=== PATIENT | male | born 1940 | race Caucasian/White ===

== ENCOUNTER 2021-04-12 10:33 | Emergency (ER) | payer MEDICARE, OTHER, SELFPAY ==
[2021-04-12] VITALS (7 sets, daily range): BP systolic 120–129; BP diastolic 72–76; PULSE 65–77; RESP 16–19; TEMP 35.6; O2SAT 92–98; BMI 23.6
--- NOTE | 2021-04-12 10:49 | EKG12_ITS ---
Test Reason : SOB Blood Pressure : / mmHG Vent. Rate : 074 BPM Atrial Rate : 074 BPM P-R Int : 188 ms QRS Dur : 122 ms QT Int : 398 ms P-R-T Axes : 037 -47 236 degrees QTc Int : 441 ms Normal sinus rhythm Left axis deviation Left ventricular hypertrophy with QRS widening and repolarization abnormality Inferior infarct , age undetermined Abnormal ECG Confirmed by ELYSE JAY, EDWIN ([id number]), proposal editor KEYANA OLIVAS ([id number]) on 04/14/2021 7:54:15 AM Referred By: JAZMIN Confirmed By:EDWIN PAPPAS MD
--- NOTE | 2021-04-12 10:50 | EDS_ITS ---
HPI History of Present Illness Chief Complaint: Shortness of Breath Detail of Chief Complaint: Shortness of breath Informant: patient Narrative Narrative: Patient presents to the emergency department from home with his daughter for complaint of fatigue and shortness of breath. Patient has had Covid symptoms since March 29 and tested positive for Covid on April 02. Patient received monoclonal antibody infusion on April 06. Patient's cough has improved and he denies any chest pain. Daughter is concerned because at times she will have labored breathing and his O2 sats at home have been down to 88% on room air. Patient also with history of coronary artery disease with prior 5 vessel CABG in 1995 and 2 cardiac stents placed in 2008. Patient not currently on any medications. He denies any chest pain. He denies fevers. He denies blood in stool or black tarry stool. PFSH PFSH Allergy/AdvReac Type Severity Reaction Status Date / Time No Known Allergies Allergy Verified 04/12/21 10:34 Surgical History (Updated 04/12/21 @ 10:52 by Carmelina Alanis) H/O five vessel coronary artery bypass Social History Smoking Status: Unknown if ever smoked ROS ROS ED Constitutional Constitutional ED: Reports systems reviewed and no addt'l complaints, except as documented; Denies body ache(s), change in weight or chills Eyes Eyes: Denies acute decrease in peripheral vision, change in vision, double vision or loss of vision ENT ENT ED: Reports none; Denies ear pain, lip swelling, loss taste/smell, neck pain , otalgia or sore throat Cardiovascular Cardiovascular: Reports none; Denies abdominal pain, chest pain with activity, leg edema, lightheadedness, palpitations, rapid heart rate or syncope Respiratory/Chest Respiratory/Chest: Reports none and dyspnea; Denies change in mental status, dry cough, hemoptysis, shortness of breath at rest or shortness of breath with exertion Gastrointestinal Gastrointestinal: Reports none; Denies abdominal pain, change in stool character, diarrhea, hematemesis, hematochezia, melena, rectal bleeding or vomiting Genitourinary Genitourinary ED: Reports none; Denies abdominal discomfort, anuria, dysuria, genital pain or polyuria Musculoskeletal Musculoskeletal: Reports none; Denies arthralgias, back pain, difficulty walking, extremity pain, muscle weakness or myalgias Integumentary Reports none; Denies abscess or rash Neurologic Neurologic: Reports none and weakness; Denies abnormal gait, confusion, focal we akness, frequent falls, headache(s), loss of vision, numbness, paresthesias, radicular pain or vertigo Psychiatric Psychiatric: Reports systems reviewed and no addt'l complaints, except as documented and none; Denies behavioral changes, confusion, difficulty concentrating, hallucinations, suicidal ideation, tactile hallucinations or visual hallucinations Endocrine Endocrinology: Denies none, cold intolerance, excessive sweating, fatigue or heat intolerance Hematologic/Lymphatic Hematologic/Lymphatic: Reports none; Denies anemia, easy bleeding or easy bruising Allergic/Immunologic Allergic/Immunologic ED: Denies as per HPI, none, lip swelling, mouth swelling, throat swelling, tongue swelling or hives EXAM Physical Exam Const Vital Signs: 04/12/21 10:35 04/12/21 10:36 04/12/21 10:50 Temperature 96.1 F L 96.1 F L Temperature Source Temporal Temporal Pulse Rate 77 77 Respiratory Rate 18 18 Respiratory Effort Short of Breath Labored Blood Pressure 129/72 H 129/72 H Blood Pressure Mean 91 91 Pulse Ox 94 94 Oxygen Delivery Method Room Air Room Air Room Air 04/12/21 12:42 Temperature Temperature Source Pulse Rate 65 Respiratory Rate 17 Respiratory Effort Blood Pressure 120/76 Blood Pressure Mean 90 Pulse Ox 92 Oxygen Delivery Method Room Air Positive well nourished and well developed General Appearance ED: well developed and NAD HEENT Reports TM's clear and moist mucous membranes normocephalic and atraumatic; Negative for trauma or tenderness Tympanic Membrane ED: Yes TM's clear Eyes PERRL and EOMs intact bilaterally General Eye ED: Negative for pale conjunctiva or scleral icterus Neck no lymphadenopathy, supple and no JVD General: Negative for tenderness Chest Wall inspection of chest normal and palpation of chest normal Chest: Negative for tenderness Resp normal respiratory effort and clear to auscultation bilaterally Effort and Inspection: Negative for respiratory distress or pain with movement Auscultation: Negative for rhonchi, wheezes or diminished lung sounds Cardio regular rate, regular rhythm, S1 normal heart sound, S2 normal heart sound and no murmurs Peripheral Pulses: pulses 2+ throughout GI normal to inspection, nondistended, normoactive bowel sounds, soft to palpation, non-tender, non-distended and no masses Back/Spine no CVA tenderness and no thoracic nor lumbar tenderness Extremity normal to inspection General Extremety ED: Negative for edema General Extremity: Negative for edema Neuro oriented x3, CN's II-XII intact bilaterally, no sensory deficits noted and gait normal Sensorium / Orientation: awake, alert, oriented to person, oriented to place and oriented to time Motor Exam: strength 5/5 throughout and strength abnormal Psych mental status grossly normal Skin no rashes or lesions noted and no wounds MDM MDM MDM Narrative Medical decision making narrative: IV line established on arrival. Patient placed on a registered nurse cardiac. Patient was ambulated in the department and his O2 sat did not drop below 90%. At this point I discussed results with patient as well as his family members and they are comfortable taking him home. Lab Data Attestation: I reviewed the patient's lab results. Labs: Laboratory Results - last 24 hr 04/12/21 04/12/21 04/12/21 11:35 11:35 11:35 WBC 6.0 RBC 4.48 L Hgb 13.7 Hct 38.8 L MCV 86.6 MCH 30.6 MCHC 35.3 RDW Std Deviation 41.8 RDW Coeff of Gisela 13.2 Plt Count 274 MPV 9.1 Immature Gran % (Auto) 0.800 Neut % (Auto) 84.0 H Lymph % (Auto) 8.0 L [place] % (Auto) 6.5 Eos % (Auto) 0.5 Baso % (Auto) 0.2 Absolute Neuts (auto) 5.1 Absolute Lymphs (auto) 0.48 L Nucleated RBC % 0 Differential Comment SCANNED D-Dimer Quant (PE/DVT) 1.30 H* Sodium 134 L Potassium 3.3 L Chloride 96 L Carbon Dioxide 27.0 Anion Gap 11 BUN 17 Creatinine 0.88 Estim Creat Clear Calc 70.28 Est GFR (MDRD) Af Amer 108 Est GFR (MDRD) Non-Af 89 BUN/Creatinine Ratio 19.4 Glucose 162 H Calcium 9.2 Troponin I High Sens 6 Urine Color Urine Clarity Urine pH Ur Specific [place] Urine Protein Urine Glucose (UA) Urine Ketones Urine Occult Blood Urine Nitrite Urine Bilirubin Urine Urobilinogen Ur Leukocyte Esterase Urine RBC Urine WBC Ur Squamous Epith Cells Urine Bacteria Urine Mucus 04/12/21 12:35 WBC RBC Hgb Hct MCV MCH MCHC RDW Std Deviation RDW Coeff of Gisela Plt Count MPV Immature Gran % (Auto) Neut % (Auto) Lymph % (Auto) [place] % (Auto) Eos % (Auto) Baso % (Auto) Absolute Neuts (auto) Absolute Lymphs (auto) Nucleated RBC % Differential Comment D-Dimer Quant (PE/DVT) Sodium Potassium Chloride Carbon Dioxide Anion Gap BUN Creatinine Estim Creat Clear Calc Est GFR (MDRD) Af Amer Est GFR (MDRD) Non-Af BUN/Creatinine Ratio Glucose Calcium Troponin I High Sens Urine Color Yellow Urine Clarity Sl. Cloudy Urine pH 7.0 Ur Specific [place] 1.005 Urine Protein 15 H Urine Glucose (UA) Normal Urine Ketones 5 H Urine Occult Blood 25 H Urine Nitrite Negative Urine Bilirubin Negative Urine Urobilinogen Normal Ur Leukocyte Esterase Negative Urine RBC 0-5 SEEN Urine WBC 0 SEEN Ur Squamous Epith Cells 0 SEEN Urine Bacteria 0 SEEN Urine Mucus 0 SEEN Radiography Diagnostic Testing: Clinical Impression(s) from Imaging Studies Chest X-Ray 04/12/21 11:53 IMPRESSION: Bilateral pulmonary infiltrates in the preferential peripheral distribution worse in the left hemithorax. This is suggestive of Covid pneumonitis. Electronically Signed: Sandro Lozano MD at 12:28 EST , Service support , Chest CTA 04/12/21 12:10 IMPRESSION: There is no evidence of pulmonary embolism. Bilateral pulmonary infiltrates in the preferential peripheral distribution suggestive of pneumonitis associated with Covid. Electronically Signed: Sandro Lozano MD at 13:04 EST , Service support , 1 view chest x-ray obtained interpreted by myself as bilateral infiltrates especially in the periphery. Radiology in agreement. EKG Initial EKG: Attestation: I personally reviewed and interpreted this EKG as follows: Comments: Sinus rhythm with a ventricular rate of 74 bpm with LVH and old inferior infarct noted. Prior EKG tracings: not available for review Discharge Plan Triage Chief Complaint: Shortness of Breath ED Provider: Caleb Rose Dx/Rx/DC Orders Clinical Impression: COVID-19, Acute dyspnea Instructions: Shortness of Breath Coping, Caring for Someone Who Has COVID-19 Primary Care Provider: Domenico Krishnamurthy Referrals: Domenico Krishnamurthy MD [Primary Care Provider] - 3-5 Days Disposition Disposition: Home, Self Care
--- NOTE | 2021-04-12 10:57 | NURSING ---
NO OLD EKGS
[2021-04-12] MEDS: 0.9% Normal Saline 1,000 ML 150 ML IV (11:32)
[2021-04-12 11:44] LABS: Absolute Lymphocyte Count 0.48 X10^3/uL (0.83-4.51); Absolute Neutrophil Count 5.1 X10^3/uL (2.0-7.7); Basophil# 0.01 X10^3/uL; Basophil% 0.2 % (0-1); Eosinophil# 0.03 X10^3/uL; Eosinophils% 0.5 % (0-5); Hematocrit 38.8 % (40-54); Hemoglobin 13.7 g/dL (13.0-16.5); Lymphocyte # 0.48 X10^3/ul (0.83-4.51); Mean Corp Hgb Conc 35.3 g/dL (32-36); Mean Corpuscular Hgb 30.6 pg (27.0-32.0); Mean Corpuscular Volume 86.6 fL (80-94); Mean Platelet Vol. 9.1 fl (6.2-12.0); Monocyte# 0.39 X10^3/uL; Monocyte% 6.5 % (0-10); NRBC Flagged by Analyzer 0 % (0-5); Neutrophil # 5.06 X10^3/uL (2.7-7.7); POSITIVE DIFFERENTIAL YES; Platelet Count 274 K/mm3 (150-450); RBC Distribution Width CV 13.2 % (11.6-14.6); RBC Distribution Width SD 41.8 fl (35.1-43.9); Red Blood Count 4.48 M/mm3 (4.6-6.2)
--- NOTE | 2021-04-12 11:53 | RAD_ITS ---
STUDY: X-RAY CHEST REASON FOR EXAM: Male, 80 years old. Dyspnea TECHNIQUE: Single AP portable view of the chest. COMPARISON: None. FINDINGS: EKG electrodes are seen. There are bilateral patchy pulmonary infiltrates in the preferential lateral peripheral distribution suggestive of a pneumonitis associated with Covid.This is worse in the left hemithorax. There is no demonstrated pleural abnormality. Sternal cerclage wires and vascular clips are present from a prior sternotomy and coronary artery bypass graft procedure (CABG). Normal mediastinum and vicente. Normal visualized pulmonary arteries. There is atherosclerotic calcification of the aortic arch with tortuosity. Normal visualized thoracic spine. Normal visualized ribs, clavicles, and shoulders. There is no demonstrated abnormality of the visualized soft tissue structures of the upper abdomen. RAD/Chest 1 View (Portable) IMPRESSION: Bilateral pulmonary infiltrates in the preferential peripheral distribution worse in the left hemithorax. This is suggestive of Covid pneumonitis. Electronically Signed: Sandro Lozano MD at 12:28 EST , Service support ,
[2021-04-12 11:54] LABS: Differential Indicated SCAN CRITERIA MET
[2021-04-12 12:02] LABS: Anion Gap 11 (5-15); BUN 17 mg/dL (7-18); BUN/Creat Ratio 19.4 RATIO (10-20); Calcium,Total 9.2 mg/dL (8.5-10.1); Chloride 96 mmol/L (98-107); Creatinine, Serum 0.88 mg/dL (0.70-1.30); EST Glomerular Filtration Rate 89 mL/min (>60); Est Glom Filt Rate - Afr Amer 108 mL/min (>60); Estimated Creatinine Clearance 70.28 ml/min; Glucose 162 mg/dL (74-106); Potassium 3.3 mmol/L (3.5-5.1); Sodium Level 134 mmol/L (136-145); Troponin-I HS 6 pg/mL (3.0-78.0)
--- NOTE | 2021-04-12 12:10 | CT_ITS ---
STUDY: CTA CHEST REASON FOR EXAM: Male, 80 years old. Dyspnea, elevated d-dimer RADIATION DOSAGE (If Supplied By Facility): CTDIvol = ( 14.72 ) mGy, DLP = ( 416.98 ) mGycm TECHNIQUE: The examination was performed with the intravenous administration of IV 100mL Isovue-300. Post-processing of the angiographic images was performed, with multiplanar reformation and 3D reconstruction. Individualized dose optimization techniques were used for this CT. COMPARISON: Comparison is made with prior chest radiograph done earlier in the day. FINDINGS: Normal enhancement of the main pulmonary artery and right and left pulmonary arteries. Normal enhancement of the bilateral peripheral pulmonary arteries. There is no demonstrated pulmonary embolism. Normal thoracic aorta and visualized great vessels. There is no demonstrated aortic dissection. There are calcifications of the coronary arteries. Normal mediastinum. Normal hilar regions. Normal visualized trachea and bronchi. The lungs are well expanded. Diffuse bilateral pulmonary infiltrates in the preferential peripheral distribution involving both upper and lower lobes. This is worse on the left side. Normal pleura. Normal chest wall structures. There are degenerative changes of thoracic spine. There is a 8.2 mm cyst in the upper medial aspect of the dome of the right lobe of the liver. CT/CTA Chest W/WO Contrast IMPRESSION: There is no evidence of pulmonary embolism. Bilateral pulmonary infiltrates in the preferential peripheral distribution suggestive of pneumonitis associated with Covid. Electronically Signed: Sandro Lozano MD at 13:04 EST , Service support ,
[2021-04-12 12:48] LABS: Bacteria 0 SEEN /hpf (None Seen); Mucous, Urine 0 SEEN /hpf (<or=2+); Squamous Epithelial Cells - UA 0 SEEN /hpf (0-5); White Blood Cells 0 SEEN /hpf (0-5)
[2021-04-12 12:52] LABS: Color, Urine Yellow (Yellow); Glucose, Dipstick Normal (Normal); Ketone-Dipstick 5 mg/dl (Negative); Leukocyte Esterase-Dipstick Negative /ul (Negative); Nitrite-Dipstick Negative (Negative); Occult Blood-Urine 25 /ul (Negative); Protein-Dipstick 15 mg/dl (Negative); Specific Gravity, Urine 1.005 (1.002-1.030); Urine Bilirubin Dipstick Negative (Negative); Urine Clarity Sl. Cloudy (Clear); Urine Urobilinogen Normal (Normal)
[2021-04-12 12:58] LABS: Red Blood Cells-Urine 0-5 SEEN /hpf (0-5)
[2021-04-12 13:05] LABS: Differential Comment SCANNED
== END 2021-04-12 14:47 | disposition home or self-care (01) ==
PROVIDERS: Emergency Provider Emergency Medicine; PCP Internal Medicine
DX: U07.1 COVID-19 (principal); I25.10 Atherosclerotic heart disease of native coronary artery without angina pectoris; R53.1 Weakness; Z95.1 Presence of aortocoronary bypass graft; Z95.5 Presence of coronary angioplasty implant and graft
CPT/HCPCS: 71045; 71275; 80048; 81001; 84484; 85025; 85379; 87086; 87088; 93005; 96360; 96361; 99285; J7030; Q9967; A4216

== ENCOUNTER 2023-12-18 14:10 | Emergency (ER) | payer MEDICARE, OTHER, SELFPAY ==
[2023-12-18 14:11] VITALS: BP 134/87; PULSE 62; RESP 18; TEMP 36.5; O2SAT 95; BMI 23.6
--- NOTE | 2023-12-18 14:29 | EX.ED.DYSGE1 ---
HPI History of Present Illness Chief Complaint: Rash Narrative Narrative: Patient. Is a 83-year-old male with no known significant past medical history not on any daily medications who presents to the emergency department with chief complaint of rash. He states that he has been dealing with lesions for approximately a year on and off. He states that for the past month he has noted that he has had this rash spread across his body. According to the patient and family member at bedside they note that the rash started on the long his right side of his abdomen progressively healed went away and then had been popping up periodically on the random areas of his body. At first they thought this was poison deneen and tried steroids and other [id number] medications for poison deneen that were not helping him. He states that the first round of steroids did help his rash and went away however after discontinuation of the steroids the rash returned. He states that any topicals that he attempts to put on it makes it more itchy and worse. He states that yesterday he went back to urgent care they placed him on a another steroid taper and gave him a intramuscular injection of 125 mg Solu-Medrol. Patient states that he does have a dermatology appointment coming up in January. Patient states that the most recent lesions. On the left foot. PFSH PFSH Home Medications ?Medication ?Instructions ?Recorded ?Last Taken ?Type NK 12/18/23 Unknown History valacyclovir 1 gram tablet 1,000 mg PO Q12H 10 days #20 tabs 12/18/23 Unknown Rx Allergy/AdvReac Type Severity Reaction Status Date / Time No Known Allergies Allergy Verified 12/18/23 14:12 Surgical History H/O five vessel coronary artery bypass Social History Smoking Status: Unknown if ever smoked ROS ROS ED ROS Narrative Constitutional: Patient denies any headaches, lightheadedness, dizziness, fevers, chills Eyes: Denies change in vision double vision blurry vision Cardiovascular: Denies chest pain palpitations Respiratory: Denies shortness of breath Abdomen: Denies abdominal pain nausea vomit diarrhea : Denies any urinary symptoms Neurological: Denies any numbness, weakness, tingling Musculoskeletal: Denies back pain Skin: Complains of rash as noted above EXAM Physical Exam Narrative Exam Narrative: General: Patient sitting at bedside rest comfortably did not appear to be acute distress Head: Atraumatic, normocephalic Eyes: PERRL bilaterally, EOMI bilateral, no conjunctival injection noted, Nose, throat: No intraoral lesions identified on exam, uvula midline no posterior pharynx erythema Neck: Soft, supple, trachea midline Cardiovascular: Regular rate and rhythm no murmurs gallops rubs noted Respiratory: Clear to auscultation bilaterally no rales rhonchi wheeze noted Abdomen: Soft, nondistended, nontender to palpation, bowel sounds present x 4 Extremities: +5/5 strength noted in the bilateral upper and lower extremities, DP pulses +2/4 in the bilateral lower extremities Neurological: Patient is following commands knew that he was at [facility] year is 2023. Sensation grossly intact when compared throughout his body Skin: Patient has on the left dorsum of his foot along the peroneal nerve distribution 3 different areas of rash that appears to be blanching. No petechia no purpura were noted, no sloughing of the skin noted. Patient has a rash noted that does appear to be healed on the right side of his abdomen and on his back. Rashes do appear to be in dermatomal distributions. Const Vital Signs: 12/18/23 14:11 Temperature 97.7 F L Temperature Source Oral Pulse Rate 62 Respiratory Rate 18 Blood Pressure 134/87 H Blood Pressure Mean 102 Pulse Ox 95 Oxygen Delivery Method Room Air MDM MDM MDM Narrative Medical decision making narrative: Patient is a 83-year-old male who presented to the emergency department with chief complaint of rash as noted in HPI. On the differential diagnose includes but limited to contact dermatitis, shingles, scabies although do feel that this less likely as there are no interdigital webspaces involved no burrowing or furling noted. Once again the patient is not on any daily medications outside of the steroids that he had been prescribed previously and recently. At this point in time the patient will be given a prescription for valacyclovir. He was encouraged to follow-up with a primary care physician for which she was referred to. He is encouraged to follow-up with dermatology at his neck scheduled appointment with them. He was encouraged return with worsening symptoms or any concerns. Patient and family members are agreeable with this plan at bedside. All question concerns answered he is discharged home in stable condition. Discharge Plan Triage Chief Complaint: Rash ED Provider: Shady Garay Dx/Rx/DC Orders Clinical Impression: Rash Prescriptions: New valacyclovir 1 gram tablet 1,000 mg PO Q12H 10 Days Qty: 20 0RF No Action NK Primary Care Provider: Care Physician,No Primary Referrals: Care Physician,No Primary [Primary Care Provider] - John Ross MD [Med Staff - Active Staff] - Activity Restrictions/Additional Instructions: Take prescription as prescribed. Follow-up your primary care physician which she referred to. Follow-up with the juvenile officer appointment. Return for worsening symptoms or any other concerns as discussed here in the emergency department. Print Language: Samoan Disposition Disposition: Home, Self Care
== END 2023-12-18 15:09 | disposition home or self-care (01) ==
LOC: ED 14:57
PROVIDERS: Emergency Provider Emergency Medicine; Visit Provider Emergency Medicine
DX: R21 Rash and other nonspecific skin eruption (principal); Z95.1 Presence of aortocoronary bypass graft
CPT/HCPCS: 99282

== ENCOUNTER 2025-04-21 08:16 | Inpatient (IN) | payer MEDICARE, OTHER, SELFPAY ==
[2025-04-21] VITALS (12 sets, daily range): BP systolic 107–149; BP diastolic 80–98; PULSE 70–91; RESP 12–23; TEMP 36.3–36.6; O2SAT 92–96; BMI 24.6; BMI 23.1
--- NOTE | 2025-04-21 09:01 | EKG12_ITS ---
Test Reason : SOB Blood Pressure : */* mmHG Vent. Rate : 87 BPM Atrial Rate : 87 BPM P-R Int : 178 ms QRS Dur : 112 ms QT Int : 368 ms P-R-T Axes : 28 -52 39 degrees QTcB Int : 442 ms Normal sinus rhythm Possible Left atrial enlargement Left axis deviation Left ventricular hypertrophy ( R in aVL , [place] product ) Possible Lateral infarct , age undetermined Nonspecific ST/T wave changes Abnormal ECG Confirmed by Alex Yan ([id number]), mapping editor KEYANA OLIVAS ([id number]) on 04/23/2025 9:58:59 AM Referred By: Confirmed By: Alex Yan
--- NOTE | 2025-04-21 09:01 | RAD_ITS ---
PROCEDURE: CHEST PA AND LATERAL 04/21/2025 REASON FOR EXAM: SHORTNESS OF BREATH TECHNIQUE: Procedure Code: RADCXR Modality: DX Procedure: CHEST PA AND LATERAL COMPARISON: April 12, 2021. FINDINGS: Hardware: EKG electrodes are seen. Heart: Prior CABG. Mediastinum: Calcification and tortuosity of the descending thoracic aorta. Lungs: Stable mild elevation of the right hemidiaphragm. The previously seen peripheral infiltrate in the left upper lobe as cleared. Mild residual scarring at the lung bases. Bones: Degenerative changes are identified within the thoracic spine. RAD/Chest PA and Lateral IMPRESSION: Findings suggestive of mild scarring at the lung bases. No acute infiltrate is seen. Reading Location: [facility]
--- NOTE | 2025-04-21 09:07 | ED.VIS.DYS ---
HPI History of Present Illness Chief Complaint: Shortness of Breath Narrative Narrative: Chief complaint and HPI: 84-year-old male with past medical history of CAD status post bypass presents for evaluation of shortness of breath. Patient states for the past several days he has been having shortness of breath. Endorses that it is worse with exertion. Endorses orthopnea. Denies any bilateral lower extremity swelling. No history of heart failure. Denies any recent history of surgery or travel. He denies any fever, chills, chest pain, abdominal pain, nausea, vomiting. States he has had a cough. Review of systems: See HPI Medications: As listed on the chart Allergies: As listed on the chart PFSH: Per chart Vital signs: As listed on the chart. Reviewed. Physical exam: Gen: A&O x3, NAD Head: Normocephalic, atraumatic Eyes: No sclera icterus, conjunctiva clear ENT: Moist mucous membranes Neck: Trachea midline, No JVD CV: RRR, no murmurs, no peripheral edema Resp: Lungs CTA BL, no w/r/c GI: Abd soft, non-distended, non-tender, no r/r/g Musc: Full ROM, no deformity Skin: Warm, dry Neuro: Alert, oriented, grossly intact, sensation intact Psych: Cooperative, appropriate mood and [facility] Medications ?Medication ?Instructions ?Recorded ?Last Taken ?Type NK 12/18/23 Unknown History Allergy/AdvReac Type Severity Reaction Status Date / Time No Known Allergies Allergy Verified 04/21/25 08:16 Surgical History H/O five vessel coronary artery bypass Social History Smoking Status: Never smoker EXAM Physical Exam Const Vital Signs: 04/21/25 08:16 04/21/25 08:19 04/21/25 08:20 Temperature 97.7 F L Temperature Source Oral Pulse Rate 91 88 Respiratory Rate 17 Respiratory Depth Normal Respiratory Pattern Normal Blood Pressure 147/88 H 147/88 H Blood Pressure Mean 107 107 Pulse Ox 96 94 Oxygen Delivery Method Room Air Room Air 04/21/25 09:16 04/21/25 10:00 04/21/25 11:00 Temperature Temperature Source Pulse Rate 84 83 82 Respiratory Rate 23 H 22 H 18 Respiratory Depth Respiratory Pattern Blood Pressure 128/97 H 149/98 H 141/92 H Blood Pressure Mean 107 115 108 Pulse Ox 95 92 94 Oxygen Delivery Method Room Air Room Air MDM MDM MDM Narrative Medical decision making narrative: 84-year-old male with past medical history of CAD status post bypass presents for evaluation of shortness of breath. Patient states for the past several days he has been having shortness of breath. Endorses that it is worse with exertion. Endorses orthopnea. Denies any bilateral lower extremity swelling. No history of heart failure. On presentation, patient no acute distress. Not tachypneic or hypoxic. Lungs are clear to auscultation bilaterally. Differential diagnosis includes but is not limited to viral illness, pneumonia, heart failure, ACS, PE. Shortness of breath workup ordered. EKG and chest x-ray reviewed. CBC unremarkable. Coagulation panel unremarkable. D-dimer elevated at 16.04. Will repeat this to make sure this is not an error. Repeat D-dimer 15.88. CTA chest ordered. BMP unremarkable. Troponin elevated at 51. Patient not having chest pain. Will obtain delta. BNP unremarkable. CTA chest shows bilateral PEs with saddle embolus extending into all lobes. Possible associated right heart strain. Correlate with hemodynamics. 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 This was personally relayed to me by speaking with the radiologist over the phone. Heparin ordered. Patient has no history of PE/DVT in the past. He denies any leg swelling or leg pain. Patient will warrant admission. Patient and family member were updated of all results and confirmed understanding of the plan. Dr. Sahu accepted admission. Recommend stopping heparin and ordering subcu Lovenox instead. This was ordered. EKG: Interpreted by me/EM physician: EKG shows normal sinus rhythm with left ventricular perch V. No acute ischemic changes. Nonspecific ST changes that are similar to previous EKG in April 2021 heart rate 87. No prolonged QTc. Diagnostic: Interpreted by me/EM physician: Chest x-ray about pneumonia, effusion, cardiomegaly, pneumothorax. Radiology in agreement. Impression: 1. Bilateral PEs with saddle embolus extending into all lobes 2. Possible right heart strain Lab Data Labs: Laboratory Results - last 24 hr 04/21/25 04/21/25 09:10 09:42 WBC 6.6 RBC 4.88 Hgb 14.9 Hct 43.8 MCV 89.8 MCH 30.5 MCHC 34.0 RDW Std Deviation 42.5 RDW Coeff of Gisela 13.0 Plt Count 193 MPV 9.3 Immature Gran % (Auto) 0.300 Neut % (Auto) 75.7 H Lymph % (Auto) 14.4 L Sunflower % (Auto) 7.9 Eos % (Auto) 0.8 Baso % (Auto) 0.9 Absolute Neuts (auto) 5.0 Absolute Lymphs (auto) 0.95 Nucleated RBC % 0 PT 13.8 INR 1.0 APTT 28.3 D-Dimer Quant (PE/DVT) 16.04 H* 15.88 H* Sodium 135 Potassium 4.1 Chloride 98 Carbon Dioxide 21.5 Anion Gap 15 BUN 17 Creatinine 1.03 Estim Creat Clear Calc 56.11 Est GFR (MDRD) Non-Af 72 BUN/Creatinine Ratio 16.2 Glucose 178 H Calcium 9.5 Troponin T High Sens 51 H NT pro BNP II 1749 Radiography Diagnostic Testing: Clinical Impression(s) from Imaging Studies Chest X-Ray 04/21/25 09:01 IMPRESSION: Findings suggestive of mild scarring at the lung bases. No acute infiltrate is seen. Reading Location: [facility] Chest CTA 04/21/25 09:39 IMPRESSION: 1. Considerable burden of bilateral pulmonary emboli including saddle embolus extending into all lobes. 2. CT findings suggestive of possible associated RIGHT heart strain. Correlate with hemodynamics. 3. 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 4. Additional description as above. Red Alert: As above The critical findings in impressions #1-2 above were relayed directly by me by telephone to Jesus Carey MD on 04/21/2025 at 8:23 am [facility]. Reading Location: [facility] Discharge Plan Triage Chief Complaint: Shortness of Breath ED Provider: Jesus Carey Dx/Rx/DC Orders Prescriptions: No Action NK Primary Care Provider: Care Physician,No Primary Referrals: Care Physician,No Primary [Primary Care Provider, Medical] Print Language: [place]
[2025-04-21 09:20] LABS: Hematocrit 43.8 % (40-54); Hemoglobin 14.9 g/dL (13.0-16.5); Immature Granulocytes Count 0.020 X10^3/uL (0.0-0.0); Mean Corp Hgb Conc 34.0 g/dL (32-36); Mean Corpuscular Volume 89.8 fL (80-94); Mean Platelet Vol. 9.3 fl (6.2-12.0); NRBC Flagged by Analyzer 0 % (0-5); Platelet Count 193 K/mm3 (150-450); RBC Distribution Width CV 13.0 % (11.6-14.6); RBC Distribution Width SD 42.5 fl (35.1-43.9); Red Blood Count 4.88 M/mm3 (4.6-6.2); White Blood Count 6.6 K/mm3 (4.4-11.0)
[2025-04-21 09:37] LABS: D-Dimer Quantitative (DVT/PE) 16.04 FEU/ug/m (0.27-0.49)
--- NOTE | 2025-04-21 09:39 | CT_ITS ---
PROCEDURE: CTA CHEST W/WO CONTRAST 04/21/2025 REASON FOR EXAM: PE TECHNIQUE: Procedure Code: [id number] Modality: CT Procedure: CTA CHEST W/WO CONTRAST Multiplanar Sagittal and Coronal reformats and MIP reconstructions were generated. CONTRAST: Isovue 370 VOLUME: 99 mL One or more dose reduction techniques were used (e.g., Automated exposure control, adjustment of the mA and/or kV according to patient size, use of iterative reconstruction technique). RADIATION DOSE SUMMARY: CTDlvol: 9.50+ 13.49 mGy DLP: 484.15 mGycm COMPARISON: 04/12/2021 ; note that images only are available for review, the report is not available at the time of the dictation. FINDINGS: Heart/pericardium: Severe three-vessel coronary atherosclerosis and/or stents post sternotomy. Trace aortic annular calcification. Slight relative enlargement of the RIGHT ventricle, RV to LV ratio roughly 1.2. Aorta: Tortuous. Mild/moderate atherosclerosis.. Fusiform ectasia of the ascending aorta to 4.2 x 4.1 cm. Pulmonary arteries: Mild dilatation of the central pulmonary arteries with which may suggest pulmonary arterial hypertension. Considerable burden of bilateral pulmonary emboli including saddle embolus extending into all lobes. Lymph nodes: Prominent but technically nonenlarged bilateral hydrocele are nodes.. Lungs/pleura: Atelectasis/scarring. Question a trace to mild background chronic interstitial abnormality with areas of reticulation and mild ground-glass favoring subpleural lung bases although the appearance may be related to postinfectious/inflammatory scarring on correlation with previous CTA. No jen honeycombing. Granulomas Airways: Unremarkable. Chest wall: Unremarkable. Upper abdomen: Peonw-jw-jkagqgho hiatal hernia containing mostly fat. Small LEFT lobe hepatic presumed cyst partially imaged. Additional punctate hepatic hypodensity too small to characterize, presumed cyst or hemangioma in the absence of known malignancy. Atherosclerosis. Musculoskeletal: Question demineralization. Minimal degenerative findings.. Old LEFT rib fractures. CT/CTA Chest W/WO Contrast IMPRESSION: 1. Considerable burden of bilateral pulmonary emboli including saddle embolus e xtending into all lobes. 2. CT findings suggestive of possible associated RIGHT heart strain. Correlate with hemodynamics. 3. 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 4. Additional description as above. Red Alert: As above The critical findings in impressions #1-2 above were relayed directly by me by telephone to Jesus Carey MD on 04/21/2025 at 8:23 am [facility]. Reading Location: [id number]
[2025-04-21 09:43] LABS: Pro- Brain NATRIURETIC PEPTIDE 1749 pg/mL (<=1800); Troponin T High Sensitivity 51 ng/L (<=22)
[2025-04-21 09:49] LABS: Anion Gap 15 (5-15); BUN 17 mg/dL (4-19); BUN/Creat Ratio 16.2 RATIO (10-20); Calcium,Total 9.5 mg/dL (7.6-11.0); Carbon Dioxide 21.5 mmol/L (21.0-32.0); Chloride 98 mmol/L (98-108); Estimated Creatinine Clearance 56.11 ml/min (50-250); Glucose 178 mg/dL (70-99); Potassium 4.1 mmol/L (3.3-5.1)
[2025-04-21 10:16] LABS: D-Dimer Quantitative (DVT/PE) 15.88 FEU/ug/m (0.27-0.49)
[2025-04-21] MEDS: 0.9% Normal Saline (1000mL) 1,000 ML 999 ML IV (10:25)
[2025-04-21 10:34] LABS: Prothrombin Time (Protime)PT. 13.8 SECONDS (11.7-14.9)
[2025-04-21 10:35] LABS: Partial Thromboplast Time 28.3 Seconds (24.1-36.2)
[2025-04-21] MEDS: Heparin Injection (Vial) 5,000 UNIT/ML VIAL 5500 UNIT IV (11:14)
--- NOTE | 2025-04-21 11:33 | ECHOCS_ITS ---
Reason For Study Reason For Study: PULMONARY EMBOLISM Procedure This was a 2D Doppler, Color Flow transthoracic echocardiogram. The study was technically difficult. Contrast injection was performed. Exam performed portable in ICU/CCU. Left Ventricle Normal LV size. The left ventricular ejection fraction is 50 %. Stage 1 diastolic dysfunction. Mild segmental systolic dysfunction (see wall motion). Infero-Basal: Akinetic. Posterior-Basal: Severely hypokinetic. Right Ventricle Normal RV size. Normal systolic function. Atria Normal left atrium. Normal right atrium. Mitral Valve Normal mitral valve. Tricuspid Valve Normal tricuspid valve. Unable to estimate RV systolic pressure due to inadequate jet, pulmonary artery pressure probably normal. Aortic Valve Trisinus/trileaflet aortic valve. Pulmonic Valve Normal pulmonic valve. Great Vessels Normal aortic root. The pulmonary artery is normal size. Inferior vena cava collapse with respiration. Pericardium/Pleural No pericardial effusion. Medication Diluted definity 2.0ml given slow IV push to enhance endocardial definition. MMode/2D Measurements & Calculations LVIDd: 4.2 cm IVSd: 0.84 cm LVOT diam: 2.4 cm LVIDs: 2.9 cm LVPWd: 0.83 cm RVDd: 3.2 cm FS: 31.1 % LVOT area: 4.6 cm2 Ao root diam: 3.6 cm asc Aorta Diam: 4.1 cm LAV(MOD-sp2): 21.9 ml LVAd ap4: 27.2 cm2 LVAd ap2: 22.7 cm2 LVLd ap4: 7.3 cm LVLd ap2: 7.7 cm EDV(MOD-bp): 69.1 ml EDV(MOD-sp4): 82.8 ml EDV(MOD-sp2): 54.7 ml ESV(MOD-bp): 34.5 ml EDV(sp4-el): 85.7 ml EDV(sp2-el): 56.7 ml EF(MOD-bp): 50.1 % LVAs ap4: 19.0 cm2 LVAs ap2: 14.6 cm2 LVLs ap4: 6.8 cm LVLs ap2: 6.6 cm ESV(MOD-sp4): 43.5 ml ESV(MOD-sp2): 27.0 ml ESV(sp4-el): 45.1 ml ESV(sp2-el): 27.4 ml EF(MOD-sp4): 47.5 % EF(MOD-sp2): 50.6 % EF(sp4-el): 47.4 % SV(MOD-sp4): 39.4 ml SV(MOD-sp2): 27.7 ml SV(sp4-el): 40.6 ml SI(MOD-sp4): 20.2 ml/m2 SI(MOD-sp2): 14.2 ml/m2 Time Measurements MV dec time: 0.17 sec Doppler Measurements & Calculations MV E max darwin: 32.8 cm/sec Lat Peak E' Darwin: 10.4 cm/sec Med Peak E' Darwin: 5.9 cm/sec MV A max darwin: 64.3 cm/sec E/E' lat: 3.1 E/E' med: 5.6 MV E/A: 0.51 MV V2 max: 61.9 cm/sec Ao V2 max: 65.4 cm/sec LV V1 max: 62.4 cm/sec MV max P.5 mmHg Ao max P.7 mmHg LV V1 max P.6 mmHg MV V2 mean: 29.8 cm/sec Ao V2 mean: 43.9 cm/sec LV V1 mean P.68 mmHg MV mean P.44 mmHg Ao mean P.85 mmHg LV V1 mean: 38.8 cm/sec MV V2 VTI: 10.6 cm Ao V2 VTI: 8.3 cm LV V1 VTI: 7.5 cm AV (velocity ratio): 0.90 MVA(VTI): 3.2 cm2 DAE(I,D): 4.1 cm2 DAE(V,D): 4.4 cm2 SV(LVOT): 34.2 ml PA V2 max: 68.6 cm/sec PI dec slope: 156.3 cm/sec2 ECHO/Echo Complete W/ Contrast Interpretation Summary Normal LV size. The left ventricular ejection fraction is 50 %. Stage 1 diastolic dysfunction. Mild segmental systolic dysfunction (see wall motion). Normal RV size. Contrast injection was performed. Ordering Physician: Bunny Sahu Referring Physician: CAROLE PCP Performed By: Abby Howell, NUVIA, RVT
--- NOTE | 2025-04-21 11:46 | PCM.HP.STD ---
HPI - General General Date of Admission: 04/21/25 Date of Service: 04/21/25 Chief Complaint: Shortness of breath worse yesterday HPI Narrative XOCHILT JIMENEZ, is a 84 M with history of CAD status post CABG and stent came to ED with shortness of breath, dyspnea on exertion since summer 2024. 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 This was gradually progressive but yesterday he was short short of breath that he could not sleep. Dyspnea at rest with worse on supine/orthopnea. Complain of mild intermittent burning epigastric/retrosternal chest pain. No hypoxia or tachypnea. No fever or URI symptoms. In ED, D-dimer was high and patient had CTPA which shows bilateral pulmonary embolism including saddle embolus extending into all lobes with right heart strain. Patient further admitted after IV heparin bolus. Denies prior history of DVT/PE, family history of hypercoagulable disorder. No history of diagnosed cancer but elevated PSA level as per granddaughter. [facility] Home Medications ?Medication ?Instructions ?Recorded ?Last Taken ?Type NK 12/18/23 Unknown History Allergy/AdvReac Type Severity Reaction Status Date / Time No Known Allergies Allergy Verified 04/21/25 08:16 Surgical History H/O five vessel coronary artery bypass Social History Smoking Status: Never smoker ROS ROS Narrative Constitutional: Reports fatigue and weakness. No fever. HEENT: Reports systems reviewed and no addt'l complaints, except as documented Respiratory/Chest: As described in HPI CVS: Chronic intermittent burning retrosternal chest pain/epigastric pain Gastrointestinal: Denies coffee ground emesis, hematemesis or vomiting Genitourinary: Denies burning urination. Chronic difficulty voiding/intermittent micturition and hesitancy. Elevated PSA. Musculoskeletal: Denies acute joint pain or limited range of motion. No acute injury Neurologic: Denies seizure-like symptoms. skin: No ulcer. No rash Endocrinology: Reports systems reviewed and no addt'l complaints, except as documented Hematologic/Lymphatic: Reports systems reviewed and no addt'l complaints, except as documented Rest 14 ROS are negative except as mentioned in HPI Vital Signs Vital Signs Vital Signs: 04/21/25 08:16 04/21/25 08:19 04/21/25 08:20 Temperature 97.7 F L Temperature Source Oral Pulse Rate 91 88 Respiratory Rate 17 Respiratory Depth Normal Respiratory Pattern Normal Blood Pressure 147/88 H 147/88 H Blood Pressure Mean 107 107 Pulse Ox 96 94 Oxygen Delivery Method Room Air Room Air 04/21/25 09:16 04/21/25 10:00 04/21/25 11:00 Temperature Temperature Source Pulse Rate 84 83 82 Respiratory Rate 23 H 22 H 18 Respiratory Depth Respiratory Pattern Blood Pressure 128/97 H 149/98 H 141/92 H Blood Pressure Mean 107 115 108 Pulse Ox 95 92 94 Oxygen Delivery Method Room Air Room Air 04/21/25 11:42 Temperature 97.9 F Temperature Source Pulse Rate 82 Respiratory Rate 18 Respiratory Depth Respiratory Pattern Blood Pressure 141/92 H Blood Pressure Mean 108 Pulse Ox 94 Oxygen Delivery Method Weight Weight: 171 lb 11.841 oz Body Mass Index (BMI) 24.6 Physical Exam Narrative General: Alert, Oriented x3, Cooperative. BMI 24.6 kg/m? HEENT: Atraumatic, PERRLA, EOMI, Normocephalic. Oral: No Gingival or Mucosal Lesions/ Ulcerations Neck: Supple, No JVD, Negative Carotid Bruits Chest wall/Lungs: CABG scar. Air entry diminished in bilateral lung bases. No crepitation/rhonchi Cardiovascular: Regular rate and rhythm, Normal S1,S2, systolic murmur Abdomen: Bowel Sounds Present, Soft, Non Tender, Non-Distended : No dysuria. No renal angle tenderness. No suprapubic tenderness. Extremities: No edema, Capillary Refill Less than 3 Seconds Skin: No rashes, No breakdown Musculoskeletal: No Tenderness to Palpation of Joints or Extremities Neurological: Cranial nerves II-XII grossly intact, DTR 2+/4. No acute focal neurological deficit. Psych/Mental Status: Normal Affect, Appropriate. Results Lab / Micro Data 04/21/25 09:10 04/21/25 09:10 Labs: Laboratory Results - last 24 hr 04/21/25 09:10: WBC 6.6, RBC 4.88, Hgb 14.9, Hct 43.8, MCV 89.8, MCH 30.5, MCHC 34.0, RDW Std Deviation 42.5, RDW Coeff of Gisela 13.0, Plt Count 193, MPV 9.3, Immature Gran % (Auto) 0.300, Neut % (Auto) 75.7 H, Lymph % (Auto) 14.4 L, [place] % (Auto) 7.9, Eos % (Auto) 0.8, Baso % (Auto) 0.9, Absolute Neuts (auto) 5.0, Absolute Lymphs (auto) 0.95, Nucleated RBC % 0, PT 13.8, INR 1.0, APTT 28.3, D-Dimer Quant (PE/DVT) 16.04 H*, Sodium 135, Potassium 4.1, Chloride 98, Carbon Dioxide 21.5, Anion Gap 15, BUN 17, Creatinine 1.03, Estim Creat Clear Calc 56.11, Est GFR (MDRD) Non-Af 72, BUN/Creatinine Ratio 16.2, Glucose 178 H, Calcium 9.5, Troponin T High Sens 51 H, NT pro BNP II 1749 04/21/25 09:42: D-Dimer Quant (PE/DVT) 15.88 H* Micro: Microbiology 04/21/25 09:05 Mucosa - Nose SARS-CoV-2, Influenza & RSV (PCR) - Final Imaging Radiology Impression Chest X-Ray 04/21/25 09:01 IMPRESSION: Findings suggestive of mild scarring at the lung bases. No acute infiltrate is seen. Reading Location: [id number] Chest CTA 04/21/25 09:39 IMPRESSION: 1. Considerable burden of bilateral pulmonary emboli including saddle embolus extending into all lobes. 2. CT findings suggestive of possible associated RIGHT heart strain. Correlate with hemodynamics. 3. 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 4. Additional description as above. Red Alert: As above The critical findings in impressions #1-2 above were relayed directly by me by telephone to Jesus Carey MD on 04/21/2025 at 8:23 am [facility]. Reading Location: [id number] Assessment & Plan Assessment/Plan (1) Acute pulmonary embolism: QUALIFIERS: Pulmonary embolism type: other Acute cor pulmonale presence: without acute cor pulmonale Qualified Code(s): I26.99 - Other pulmonary embolism without acute cor pulmonale PLAN: Plan This 84-year-old gentleman is being admitted for acute on chronic shortness of breath with dyspnea at rest and orthopnea 1. Acute bilateral pulmonary embolism including saddle embolus extending into all lobes right heart strain: Patient currently is hemodynamically stable in regards to blood pressure and heart rate with no hypoxia or tachypnea therefore admitted in PCU. Patient got IV bolus heparin 5500 units in ED therefore Lovenox 1 mg/kg body weight started at 2 PM after discussion with the pharmacist regarding switching heparin to Lovenox. 2D echo is ordered. IV fluid normal saline ordered to prevent SONIA. Twelve-lead EKG reviewed NSR at 87 bpm, LAD, LVH, QTc 442 ms. 2. CAD status post CABG and stent: Patient stated he had 5 vessel CABG at age 56. Later on he had a cardiac stent. No acute NV episode. Intermittent lower chest/epigastric burning pain. Troponins 51, 43 decreasing trend. NT proBNP 1749. Chest x-ray and CTA chest does not show any fluid overload/pulmonary edema 3. 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 Elevated PSA by history with chronic LUTS: No documentation involved to cooperate. As per granddaughter, they have decided not for prostate biopsy as CA prostate was thought not the determining/limiting factor to shorten his life. 5. DVT prophylaxis as mentioned above. Living will/advanced directive/end of life care: Patient does have living will or advanced directive. His youngest daughter is power of [employer] for [employer] who lives in [place]. After discussion of benefits/risks procedures involved with full code, DNR CC arrest and DNR CC, the patient opted for DNR CC arrest with no intubation Patient doesn't want artificial life support including intubation, tube feed, ventilator and/chest compression, central venous catheter, vasopressor and DC shock if needed Total time spent in [id number] encounter in discussion of advanced directive 17 minutes. Charges/Coding Visit Charges Inpatient E&M: 11814 Init Hosp L3 Procedures Hospitalists Procedures: 36302 Advncd Care Plan 30 Min
[2025-04-21 12:10] LABS: Troponin T High Sens 2 HR 43 ng/L (<=22)
[2025-04-21 12:53] LABS: Magnesium 1.9 mg/dL (1.5-2.2)
--- NOTE | 2025-04-21 12:59 | CON.PCM.SX_ITS ---
Assessment & Plan Assessment/Plan (1) Acute pulmonary embolism: QUALIFIERS: Acute cor pulmonale presence: without acute cor pulmonale Pulmonary embolism type: other Qualified Code(s): I26.99 - Other pulmonary embolism without acute cor pulmonale PLAN: Plan Patient had saddle PE which secondary to clot burden and proximal nature would be appropriate to consider thrombectomy. Ultimately, echo did not demonstrate any significant heart strain, troponins only mildly elevated, BNP normal. He has been saturating well on room air/low O2 requirement (2 lpm at most thus far), is normotensive, and notes improving SOB with anticoagulation alone to this point. Discussed with patient and present family the indications for thrombectomy, risks, benefits, alternatives (anticoagulation alone). Ultimately, given he has no significant heart strain and is clinically stable with minimal O2 requirement did not feel thrombectomy would provide significant further benefit and he and his family were in agreement. Will obtain bilateral lower extremity venous dopplers to determine possible residual clot burden to establish baseline. Plan is for anticoagulation alone. OK to transition to oral anticoagulant tomorrow from surgical perspective. Given the unprovoked nature and extent of his VTE, recommend a minimum of 1 year of full anticoagulation and then consideration of prophylactic anticoagulation indefinitely. Also recommend that he ensure he is up to date on appropriate cancer screenings. Plan for outpatient follow-up in the office in 2-4 weeks. HPI Consult Data Date of Consult: 04/21/25 HPI Narrative HPI Narrative: XOCHILT JIMENEZ, is a 84 M who presented to the [facility] ER with chief complaint of SOB. In the ER, he had CTA Chest which demonstrated saddle PE with signs of R heart strain. He is admitted for further management and we are consulted for consideration of pulmonary thrombectomy. He had slightly elevated troponins, BNP within normal limits. He has been normotensive. He has been saturating well on room air; on evaluation to discuss echo results later in the afternoon he was noted to be on 2 lpm O2. He was on heparin drip initially but since transitioned to lovenox. He reports that he has noticed some increased dyspnea on exertion for a few months, but developed acutely worse SOB that occurred at rest last night. On initial eval, he'd not had much improvement in symptoms but on re-evaluation later this afternoon reports feeling like he was breathing a little easier. He denies any significant chest pain, pressure, or palpitations. He denies any recent injury, illness, or travel that would have significantly reduced his activity. 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 He denies any history of any prior DVT or PE and reports no known clotting disorders. He has not noticed any increased lower extremity pain, swelling, redness, or warmth. Echo ultimately came back with no signs of significant R heart strain. [facility] Home Medications ?Medication ?Instructions ?Recorded ?Last Taken ?Type NK 12/18/23 Unknown History Allergy/AdvReac Type Severity Reaction Status Date / Time No Known Allergies Allergy Verified 04/21/25 08:16 Surgical History H/O five vessel coronary artery bypass Social History Smoking Status: Never smoker Physical Exam Const alert, oriented x3 and no apparent distress General Appearance: cooperative and comfortable HEENT normocephalic, head/scalp atraumatic, hearing grossly normal bilaterally, external ears normal and external nose normal Eyes EOMs intact bilaterally General Eye: normal appearance of both eyes Neck General: normal visual inspection Resp normal respiratory effort, normal air movement, no retractions and no use of accessory muscles Effort and Inspection: able to speak in complete sentences; Negative for labored, grunting or stridor Cardio regular rate Extremity normal to inspection and no clubbing, cyanosis or edema Skin no rashes or lesions noted Trauma: no lacerations or abrasions Neuro oriented x3, moves all extremities and no focal motor deficits Speech: speech normal Psych mental status grossly normal Appearance: grossly normal Attitude: calm and engaged Activity / Motor Behavior: appropriate eye contact Speech: normal speech Mood & Affect: euthymic mood Lab / Micro Data 04/21/25 09:10 04/21/25 09:10 Labs: Laboratory Results - last 24 hr 04/21/25 09:10: WBC 6.6, RBC 4.88, Hgb 14.9, Hct 43.8, MCV 89.8, MCH 30.5, MCHC 34.0, RDW Std Deviation 42.5, RDW Coeff of Gisela 13.0, Plt Count 193, MPV 9.3, Immature Gran % (Auto) 0.300, Neut % (Auto) 75.7 H, Lymph % (Auto) 14.4 L, [place] % (Auto) 7.9, Eos % (Auto) 0.8, Baso % (Auto) 0.9, Absolute Neuts (auto) 5.0, Absolute Lymphs (auto) 0.95, Nucleated RBC % 0, PT 13.8, INR 1.0, APTT 28.3, D- Dimer Quant (PE/DVT) 16.04 H*, Sodium 135, Potassium 4.1, Chloride 98, Carbon Dioxide 21.5, Anion Gap 15, BUN 17, Creatinine 1.03, Estim Creat Clear Calc 56.11, Est GFR (MDRD) Non-Af 72, BUN/Creatinine Ratio 16.2, Glucose 178 H, Calcium 9.5, Troponin T High Sens 51 H, NT pro BNP II 1749 04/21/25 09:42: D-Dimer Quant (PE/DVT) 15.88 H* 04/21/25 11:30: Magnesium 1.9, Troponin T Hi Sens 2 Hr 43 H Micro: Microbiology 04/21/25 09:05 Mucosa - Nose SARS-CoV-2, Influenza & RSV (PCR) - Final Imaging Radiology Impression Chest X-Ray 04/21/25 09:01 IMPRESSION: Findings suggestive of mild scarring at the lung bases. No acute infiltrate is seen. Reading Location: [facility] Chest CTA 04/21/25 09:39 IMPRESSION: 1. Considerable burden of bilateral pulmonary emboli including saddle embolus extending into all lobes. 2. CT findings suggestive of possible associated RIGHT heart strain. Correlate with hemodynamics. 3. 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 4. Additional description as above. Red Alert: As above The critical findings in impressions #1-2 above were relayed directly by me by telephone to Jesus Carey MD on 04/21/2025 at 8:23 am [facility]. Reading Location: [id number] Charges/Coding Visit Charges Inpatient E&M: 93949 Init Hosp L1
[2025-04-21] MEDS: 0.9% Normal Saline (1000mL) 1,000 ML 75 ML IV (13:08)
--- NOTE | 2025-04-21 15:24 | CM.ED ---
Social Work Reason for visit: No PCP Patient confirmed that he does not currently have a PCP. [facility] provider list along with Why Wait brochure given. No further needs at this time. Kandy Guevara, BUILD MASTER, SILK SCREEN PRINTER
--- NOTE | 2025-04-21 19:07 | VDLE_ITS ---
Reason For Study Reason For Study: Pulmonary embolism RIGHT LEFT GSV is normal. CFV is compressible, spontaneous, phasic, competent, CFV is compressible, spontaneous, phasic, competent and demonstrates normal augmentation. and demonstrates normal augmentation. FV is compressible, spontaneous, phasic, competent FV prox-mid is compressible with venous flow noted. and demonstrates normal augmentation. Acute deep vein thrombosis is noted in the FV distal, POP V is compressible, spontaneous, phasic, competent PopV, T/P Trunk, and PeroV. It is NONCOMPRESIBLE and and demonstrates normal augmentation. dilated. T/P Trunk is compressible. PTV is compressible. PTV is compressible. Procedure LT PerV is compressible. This is a venous duplex using B-mode, color flow and GSV previously harvested. spectral Doppler. Exam performed portable in ICU/CCU. A preliminary report was called and/or faxed to Niko RODRIGUEZ. VL/Venous Duplex US - Saw Extrem Interpretation Summary Acute deep vein thrombosis noted in the right femoral vein, popliteal vein, tib ioperoneal trunk vein, peroneal vein. Deep veins of the left lower extremity are patent and compressible segmentally. There is no evidence of left lower extremity deep vein thrombosis. The right great saphenous vein appears patent a nd compressible segmentally. Ordering Physician: Haylie Pope Performed By: Lisandra De La Paz RVT
[2025-04-22] VITALS (8 sets, daily range): BP systolic 117–131; BP diastolic 80–86; PULSE 60–79; RESP 17–19; TEMP 36.4–36.5; O2SAT 90–95; BMI 23.1
--- NOTE | 2025-04-22 07:21 | PN.HOSP_ITS ---
Reason for Visit Chief Complaint: Shortness of breath worse yesterday Objective Data Objective Data Vital Signs: Vital Signs Temp Pulse Resp BP Pulse Ox O2 Del Method O2 Flow Rate 97.7 F L 68 17 117/80 94 Nasal Cannula 2 04/22/25 02:30 04/22/25 02:30 04/22/25 02:30 04/22/25 02:30 04/22/25 06:56 04/22/25 06:56 04/22/25 06:56 Oxygen Flow Rate (L/min) 2 Oxygen Delivery Method Nasal Cannula Weight: 161 lb 6.054 oz Body Mass Index (BMI) 23.1 Intake & Output: Intake and Output for Last 24 Hours 04/20/25 04/21/25 04/22/25 23:59 23:59 23:59 Intake Total 1300 / 1300 1000 / 1000 Output Total 350 / 500 300 / 300 Balance 950 / 800 700 / 700 Lab / Micro Data 04/22/25 07:26 04/22/25 07:26 Labs: Laboratory Results - last 24 hr 04/21/25 09:10: WBC 6.6, RBC 4.88, Hgb 14.9, Hct 43.8, MCV 89.8, MCH 30.5, MCHC 34.0, RDW Std Deviation 42.5, RDW Coeff of Gisela 13.0, Plt Count 193, MPV 9.3, Immature Gran % (Auto) 0.300, Neut % (Auto) 75.7 H, Lymph % (Auto) 14.4 L, [place] % (Auto) 7.9, Eos % (Auto) 0.8, Baso % (Auto) 0.9, Absolute Neuts (auto) 5.0, Absolute Lymphs (auto) 0.95, Nucleated RBC % 0, PT 13.8, INR 1.0, APTT 28.3, D- Dimer Quant (PE/DVT) 16.04 H*, Sodium 135, Potassium 4.1, Chloride 98, Carbon Dioxide 21.5, Anion Gap 15, BUN 17, Creatinine 1.03, Estim Creat Clear Calc 56.11, Est GFR (MDRD) Non-Af 72, BUN/Creatinine Ratio 16.2, Glucose 178 H, Calcium 9.5, Troponin T High Sens 51 H, NT pro BNP II 1749 04/21/25 09:42: D-Dimer Quant (PE/DVT) 15.88 H* 04/21/25 11:30: Magnesium 1.9, Troponin T Hi Sens 2 Hr 43 H Micro: Microbiology 04/21/25 09:05 Mucosa - Nose SARS-CoV-2, Influenza & RSV (PCR) - Final Radiography Diagnostic Testing: Radiology Impression Chest X-Ray 04/21/25 09:01 IMPRESSION: Findings suggestive of mild scarring at the lung bases. No acute infiltrate is seen. Reading Location: [id number] Chest CTA 04/21/25 09:39 IMPRESSION: 1. Considerable burden of bilateral pulmonary emboli including saddle embolus extending into all lobes. 2. CT findings suggestive of possible associated RIGHT heart strain. Correlate with hemodynamics. 3. 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 4. Additional description as above. Red Alert: As above The critical findings in impressions #1-2 above were relayed directly by me by telephone to Jesus Carey MD on 04/21/2025 at 8:23 am [facility]. Reading Location: [id number] Echocardiogram 04/21/25 11:33 Interpretation Summary Normal LV size. The left ventricular ejection fraction is 50 %. Stage 1 diastolic dysfunction. Mild segmental systolic dysfunction (see wall motion). Normal RV size. Contrast injection was performed. Ordering Physician: Bunny Sahu Referring Physician: CAROLE PCP Performed By: Abby Howell, NUVIA, RVT Physical Exam Narrative General: Alert, Oriented x3, Cooperative. BMI 24.6 kg/m? HEENT: Atraumatic, PERRLA, EOMI, Normocephalic. Oral: No Gingival or Mucosal Lesions/ Ulcerations Neck: Supple, No JVD, Negative Carotid Bruits Chest wall/Lungs: CABG scar. Air entry diminished in bilateral lung bases. No crepitation/rhonchi Cardiovascular: Regular rate and rhythm, Normal S1,S2, systolic murmur Abdomen: Bowel Sounds Present, Soft, Non Tender, Non-Distended : No dysuria. No renal angle tenderness. No suprapubic tenderness. Extremities: No edema, Capillary Refill Less than 3 Seconds Skin: No rashes, No breakdown Musculoskeletal: No Tenderness to Palpation of Joints or Extremities Neurological: Cranial nerves II-XII grossly intact, DTR 2+/4. No acute focal neurological deficit. Psych/Mental Status: Normal Affect, Appropriate. Assessment & Plan Assessment/Plan (1) Acute pulmonary embolism: QUALIFIERS: Acute cor pulmonale presence: without acute cor pulmonale Pulmonary embolism type: other Qualified Code(s): I26.99 - Other pulmonary embolism without acute cor pulmonale PLAN: Plan This 84-year-old gentleman is being admitted for acute on chronic shortness of breath with dyspnea at rest and orthopnea 1. Acute bilateral pulmonary embolism including saddle embolus extending into all lobes right heart strain: Patient currently is hemodynamically stable in regards to blood pressure and heart rate with no hypoxia or tachypnea therefore admitted in PCU. Patient got IV bolus heparin 5500 units in ED therefore Lovenox 1 mg/kg body weight started at 2 PM after discussion with the pharmacist regarding switching heparin to Lovenox. 2D echo is ordered. IV fluid normal saline ordered to prevent SONIA. Twelve-lead EKG reviewed NSR at 87 bpm, LAD, LVH, QTc 442 ms. 04/22: Vascular surgeon was consulted at the time of admission. 2D echo reviewed with the vascular surgeon yesterday. Although CTA shows RV dilatation with RV to LV ratio 1.2 but echo shows normal right ventricle size and systolic function. EF 50% with stage I diastolic function. No TR. Features suggestive of chronic HFpEF Dr. Muro recommended to continue antithrombotic and no plan for vascular surgery intervention/thrombolytics. Lovenox changed to Eliquis, full anticoagulation dose, 10 mg twice daily. Patient wants to go home. Home oxygen. Discharge 2. CAD status post CABG and stent: Patient stated he had 5 vessel CABG at age 56. Later on he had a cardiac stent. No acute [place] episode. Intermittent lower chest/epigastric burning pain. Troponins 51, 43 decreasing trend. NT proBNP 1749. Chest x-ray and CTA chest does not show any fluid overload/pulmonary edema 3. 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 Elevated PSA by history with chronic LUTS: No documentation involved to cooperate. As per granddaughter, they have decided not for prostate biopsy as CA prostate was thought not the determining/limiting factor to shorten his life. 04/22: Advised PSA level to check in normal baseline health as an outpatient in the morning urine sample in consultation of urologist and further management. It might be falsely elevated or low in view of acute sickness. 5. DVT prophylaxis as mentioned above. Living will/advanced directive/end of life care: Patient does have living will or advanced directive. His youngest daughter is power of esthetician/skin therapist for [facility] who lives in [place]. After discussion of benefits/risks procedures involved with full code, DNR CC arrest and DNR CC, the patient opted for DNR CC arrest with no intubation Patient doesn't want artificial life support including intubation, tube feed, ventilator and/chest compression, central venous catheter, vasopressor and DC shock if needed Total time spent in [id number] encounter in discussion of advanced directive 17 minutes. Charges/Coding Visit Charges Inpatient E&M: [address] [facility] Hosp L3
[2025-04-22 07:46] LABS: Hematocrit 39.8 % (40-54); Hemoglobin 13.3 g/dL (13.0-16.5); Immature Granulocytes Count 0.020 X10^3/uL (0.0-0.0); Mean Corp Hgb Conc 33.4 g/dL (32-36); Mean Corpuscular Volume 90.9 fL (80-94); Mean Platelet Vol. 9.2 fl (6.2-12.0); NRBC Flagged by Analyzer 0 % (0-5); Platelet Count 172 K/mm3 (150-450); RBC Distribution Width CV 13.2 % (11.6-14.6); RBC Distribution Width SD 44.4 fl (35.1-43.9); Red Blood Count 4.38 M/mm3 (4.6-6.2); White Blood Count 5.8 K/mm3 (4.4-11.0)
[2025-04-22 08:20] LABS: Anion Gap 10 (5-15); BUN 16 mg/dL (4-19); BUN/Creat Ratio 14.5 RATIO (10-20); Calcium,Total 8.9 mg/dL (7.6-11.0); Carbon Dioxide 24.0 mmol/L (21.0-32.0); Chloride 104 mmol/L (98-108); Estimated Creatinine Clearance 53.02 ml/min (50-250); Glucose 156 mg/dL (70-99); Potassium 4.3 mmol/L (3.3-5.1)
--- NOTE | 2025-04-22 08:28 | PCM.PN.SRG ---
Subjective Subjective I saw patient at bedside this morning, he was resting comfortably, just woke up. He relates that he slept well last night, feels like he is breathing easier. He remains on 2l O2 via NC. He denies chest pain, pressure, palpitations. Objective Data Objective Data Vital Signs: Vital Signs Temp Pulse Resp BP Pulse Ox O2 Del Method O2 Flow Rate 97.6 F L 68 19 H 131/86 H 95 Nasal Cannula 2 04/22/25 08:21 04/22/25 08:21 04/22/25 08:21 04/22/25 08:21 04/22/25 08:21 04/22/25 08:21 04/22/25 08:21 Oxygen Flow Rate (L/min) 2 Oxygen Delivery Method Nasal Cannula Weight: 161 lb 6.054 oz Body Mass Index (BMI) 23.1 Intake & Output: Intake and Output for Last 24 Hours 04/20/25 04/21/25 04/22/25 23:59 23:59 23:59 Intake Total 1300 / 1300 1000 / 1000 Output Total 350 / 500 300 / 300 Balance 950 / 800 700 / 700 Lab / Micro Data 04/22/25 07:26 04/22/25 07:26 Labs: Laboratory Results - last 24 hr 04/21/25 09:10: WBC 6.6, RBC 4.88, Hgb 14.9, Hct 43.8, MCV 89.8, MCH 30.5, MCHC 34.0, RDW Std Deviation 42.5, RDW Coeff of Gisela 13.0, Plt Count 193, MPV 9.3, Immature Gran % (Auto) 0.300, Neut % (Auto) 75.7 H, Lymph % (Auto) 14.4 L, [place] % (Auto) 7.9, Eos % (Auto) 0.8, Baso % (Auto) 0.9, Absolute Neuts (auto) 5.0, Absolute Lymphs (auto) 0.95, Nucleated RBC % 0, PT 13.8, INR 1.0, APTT 28.3, D-Dimer Quant (PE/DVT) 16.04 H*, Sodium 135, Potassium 4.1, Chloride 98, Carbon Dioxide 21.5, Anion Gap 15, BUN 17, Creatinine 1.03, Estim Creat Clear Calc 56.11, Est GFR (MDRD) Non-Af 72, BUN/Creatinine Ratio 16.2, Glucose 178 H, Calcium 9.5, Troponin T High Sens 51 H, NT pro BNP II 1749 04/21/25 09:42: D-Dimer Quant (PE/DVT) 15.88 H* 04/21/25 11:30: Magnesium 1.9, Troponin T Hi Sens 2 Hr 43 H 04/22/25 07:26: WBC 5.8, RBC 4.38 L, Hgb 13.3, Hct 39.8 L, MCV 90.9, MCH 30.4, MCHC 33.4, RDW Std Deviation 44.4 H, RDW Coeff of Gisela 13.2, Plt Count 172, MPV 9.2, Immature Gran % (Auto) 0.300, Neut % (Auto) 60.9, Lymph % (Auto) 21.4, [place] % (Auto) 10.8 H, Eos % (Auto) 5.6 H, Baso % (Auto) 1.0, Absolute Neuts (auto) 3.5, Absolute Lymphs (auto) 1.23, Nucleated RBC % 0, Sodium 138, Potassium 4.3, Chloride 104, Carbon Dioxide 24.0, Anion Gap 10, BUN 16, Creatinine 1.09, Estim Creat Clear Calc 53.02, Est GFR (MDRD) Non-Af 67, BUN/Creatinine Ratio 14.5, Glucose 156 H, Calcium 8.9, TSH 3.900 Micro: Microbiology 04/21/25 09:05 Mucosa - Nose SARS-CoV-2, Influenza & RSV (PCR) - Final Radiography Diagnostic Testing: Radiology Impression Chest X-Ray 04/21/25 09:01 IMPRESSION: Findings suggestive of mild scarring at the lung bases. No acute infiltrate is seen. Reading Location: [id number] Chest CTA 04/21/25 09:39 IMPRESSION: 1. Considerable burden of bilateral pulmonary emboli including saddle embolus extending into all lobes. 2. CT findings suggestive of possible associated RIGHT heart strain. Correlate with hemodynamics. 3. 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 4. Additional description as above. Red Alert: As above The critical findings in impressions #1-2 above were relayed directly by me by telephone to Jesus Carey MD on 04/21/2025 at 8:23 am [facility]. Reading Location: [id number] Echocardiogram 04/21/25 11:33 Interpretation Summary Normal LV size. The left ventricular ejection fraction is 50 %. Stage 1 diastolic dysfunction. Mild segmental systolic dysfunction (see wall motion). Normal RV size. Contrast injection was performed. Ordering Physician: Bunny Sahu Referring Physician: CAROLE PCP Performed By: Abby Howell, NUVIA, RVT Physical Exam Const alert, oriented x3 and no apparent distress General Appearance: cooperative and comfortable HEENT normocephalic, head/scalp atraumatic, hearing grossly normal bilaterally, external ears normal and external nose normal Eyes General Eye: normal appearance of both eyes Neck General: normal visual inspection Resp normal respiratory effort, normal air movement, no retractions and no use of accessory muscles Effort and Inspection: able to speak in complete sentences; Negative for labored, grunting or stridor Cardio regular rate Extremity normal to inspection and no clubbing, cyanosis or edema Skin no rashes or lesions noted Trauma: no lacerations or abrasions Neuro oriented x3, moves all extremities and no focal motor deficits Speech: speech normal Psych mental status grossly normal Appearance: grossly normal Attitude: calm and engaged Activity / Motor Behavior: appropriate eye contact Speech: normal speech Mood & Affect: euthymic mood Assessment & Plan Assessment/Plan (1) Acute pulmonary embolism: QUALIFIERS: Pulmonary embolism type: other Acute cor pulmonale presence: without acute cor pulmonale Qualified Code(s): I26.99 - Other pulmonary embolism without acute cor pulmonale PLAN: Plan Patient's O2 requirements are stable, he remains hemodynamically stable. He relates continued improvement in his dyspnea. No plan for intervention. Continue with conservative management with anticoagulation. OK to transition to oral anticoagulant from vascular perspective. Recommend a minimum of 1 year of full anticoagulation and then would consider prophylactic anticoagulation indefinitely thereafter. Bilateral lower extremity venous doppler is pending to establish baseline lower extremity clot burden. Do not anticipate that results will alter current plan for management. Discharge planning per primary team. Plan for outpatient follow-up in the office in 2-4 weeks. Charges/Coding Visit Charges Inpatient E&M: 91871 Subs Hosp L1
[2025-04-22] MEDS: APIXABAN 5 MG TABLET 10 MG PO (09:21)
--- NOTE | 2025-04-22 10:07 | CASEMGMT ---
DORI ROMERO Assessment Face to Face with patient for initial transition planning/care coordination assessment. RN NICK introduced self and role at [facility], pt voices understanding. Pt is A&Ox4 and is resting comfortably in bed and is calm. Care providers, pharmacy, and demographics verified. Admitting dx: BL Pulmonary Embolism LACE Strata: 1 PCP: No PCP. Pt was provided a list in the ED Specialists: Denies current. Dr. Sahu requests this RN CM to schedule a f/u appt with [facility] (Hematology/ Oncology) for the PE. TC to [facility] who states that Dr. Shin can see the pt on 05/12/25 at 1430. Pt notified and agrees. Also noted that the vascular team is recommending f/u in 2-4 weeks. Updated the pt who states that he will call to make an appt. DC information updated. Preferred Pharmacy: [facility] Insurance: [facility] A/B, [facility] Supp Prescription Benefit: Yes LNOK: Roxane (Dtr), Claribel (Dtr) Living Arrangements: Pt lives alone in a single story home with 4 steps to enter with handrails ADLs/IADLs: Indep, 6-Click score is 24 Transportation: Self, Dtr DME: Access to a FWW, W/C, [place]am lift (was for pt's ), and grab bars. Pt states that the nurse tested the pt for home O2 already and that he did not qualify. CM to follow for documentation. HHC/SNF: Denies hx of or needs Pt?s goal: Home Plan: Home, follow for anticaog rx. Pt encouraged to get established with a PCP. Pt plans to follow up with Hematology and vascular as an OP. Pt states that he feels safe going home once medically ready and denies any further questions, concerns, or needs. CM to follow. Per ICU rounds, anticipate DC today. Esthela Joshi RN, CM
--- NOTE | 2025-04-22 10:23 | DCINST_ITS ---
Discharge Instructions DC O2, CPAP, BIPAP needs Home O2 Discharge instructions: No Dressing / Incision Discharge Activity: Return to Normal Activity Weight Bearing Status: Weight bearing as tolerated Dressing / Incision Call your doctor if you observe: Fever of 101 or Higher, Coldness, Increased Pain, Numbness or Tingling, Change in Color, Inability to urinate, Inability to have a bowel movement, Shortness of breath, Dizziness, Fainting spells, Swelling in the ankles, Chest pain, Prolonged hiccupping, Increased palpitations (irregular heartbeat) and Calf discomfort Follow Up Care When: IN 2 WEEKS Test Results: Test results from this visit will be discussed in further detail at your follow- up appointment, if applicable. Discharge Plan Admission Admit Date/Time: 04/21/25 11:31 Attending Provider: Bunny Sahu Primary Care Provider: Care Physician,Carmelita Primary Consulting Providers: Uvaldo Cao Instructions Additional Instructions / Restrictions: Needs to continue Eliquis preferably indefinitely Discharge Orders/Prescriptions Prescriptions: New Eliquis DVT-PE Treat 30D Start 5 mg (74 tabs) tablets,dose pack 5 mg PO BID Qty: 74 0RF Rx Instructions: 10 mg (2 tabs) twice daily for 7 days TILL 01/28/25 PM dose and then twice daily to continue Eliquis 5 mg tablet 5 mg PO BID 30 Days Qty: 60 4RF Rx Instructions: Start from May 23, 2024 Referrals / Follow Up: Jose Cruz Sanchez DO [Med Staff - Active Staff, Pulmonary Medicine] - Within 1 Month Referral Note: For bilateral diffuse PE involving main pulmonary trunk Uvaldo Cao MD [Med Staff - Active Staff, Vascular Surgery] Referral Note: Please call to schedule a follow up appt in 2-4 weeks. Virgil Godinez MD [Med Staff - Active Staff, Urology] - Within 1 Month Jossie Shin MD [Med Staff - Active Staff, Oncology] - 05/12/25 2:30 pm Care Physician,No Primary [Primary Care Provider, Medical] Disposition Disposition (needs filled in before D/C Order can be placed): Home, Self Care
--- NOTE | 2025-04-22 12:01 | PCM.DC.SUM ---
Providers Date of Admission: 04/21/25 Date of Discharge: 04/22/25 Primary Care Physician: Carmelita Primary Care Phys Consultations 04/21/25 12:34 Consult: Vascular Surgery Routine Consulting Provider: Uvaldo Cao Reason for Consult: bilateral diffuse PE, possible saddle embolus with Rt heart strain EMERGENT Consult: No MD Notified: Yes Date Notified: 04/21/25 Time Notified: 12:00 Method of Notification: Verbal Reason For Visit: B/L PULM EMBOLISM Diagnosis Discharge Diagnosis (1) Acute pulmonary embolism: Status: Acute Code(s): I26.99 - Other pulmonary embolism without acute cor pulmonale Qualifiers: Pulmonary embolism type: other Acute cor pulmonale presence: without acute cor pulmonale Qualified Code(s): I26.99 - Other pulmonary embolism without acute cor pulmonale Plan This 84-year-old gentleman is being admitted for acute on chronic shortness of breath with dyspnea at rest and orthopnea 1. Acute bilateral pulmonary embolism including saddle embolus extending into all lobes right heart strain: Patient currently is hemodynamically stable in regards to blood pressure and heart rate with no hypoxia or tachypnea therefore admitted in PCU. Patient got IV bolus heparin 5500 units in ED therefore Lovenox 1 mg/kg body weight started at 2 PM after discussion with the pharmacist regarding switching heparin to Lovenox. 2D echo is ordered. IV fluid normal saline ordered to prevent SONIA. Twelve-lead EKG reviewed NSR at 87 bpm, LAD, LVH, QTc 442 ms. 04/22: Vascular surgeon was consulted at the time of admission. 2D echo reviewed with the vascular surgeon yesterday. Although CTA shows RV dilatation with RV to LV ratio 1.2 but echo shows normal right ventricle size and systolic function. EF 50% with stage I diastolic function. No TR. Features suggestive of chronic HFpEF Dr. Muro recommended to continue antithrombotic and no plan for vascular surgery intervention/thrombolytics. Lovenox changed to Eliquis, full anticoagulation dose, 10 mg twice daily. Patient wants to go home. Home oxygen. Patient was discharged on starter Dosepak of Eliquis. Refill for Eliquis after 1 month also given. 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 2. CAD status post CABG and stent: Patient stated he had 5 vessel CABG at age 56. Later on he had a cardiac stent. No acute TN episode. Intermittent lower chest/epigastric burning pain. Troponins 51, 43 decreasing trend. NT proBNP 1749. Chest x-ray and CTA chest does not show any fluid overload/pulmonary edema 3. 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 Elevated PSA by history with chronic LUTS: No documentation involved to cooperate. As per granddaughter, they have decided not for prostate biopsy as CA prostate was thought not the determining/limiting factor to shorten his life. 04/22: Advised PSA level to check in normal baseline health as an outpatient in the morning urine sample in consultation of urologist and further management. It might be falsely elevated or low in view of acute sickness. 5. DVT prophylaxis as mentioned above. Living will/advanced directive/end of life care: Patient does have living will or advanced directive. His youngest daughter is power of tax attorney for [facility] who lives in [place]. After discussion of benefits/risks procedures involved with full code, DNR CC arrest and DNR CC, the patient opted for DNR CC arrest with no intubation Patient doesn't want artificial life support including intubation, tube feed, ventilator and/chest compression, central venous catheter, vasopressor and DC shock if needed Discharge medication reconciliation done. Discharge follow-up instructions completed. Discharge process discussed with the patient and all questions were answered to patient's satisfaction. Follow with PCP in 1 to 2 weeks Total time spent, exact 35 minutes on discharge meds reconciliation, examination, coordination of care with nurses and ancillary staff, review of imaging and blood test and discussion with the patient on follow-up instructions. Medications at Discharge Home Medications apixaban 5 mg (74 tabs) tablets in a dose pack (Eliquis DVT-PE Treat 30D Start) 5 mg PO BID #74 tabs 04/22/25 apixaban 5 mg tablet (Eliquis) 5 mg PO BID 1 month #60 tabs 04/22/25 Physical Exam Narrative Please see progress note on the same day Weight / BMI Weight Weight: 161 lb 6.054 oz Body Mass Index (BMI) 23.1 ABG / Lab / Microbiology Data 04/22/25 07:26 04/22/25 07:26 Laboratory: Laboratory Results - last 24 hr 04/21/25 11:30: Magnesium 1.9, Troponin T Hi Sens 2 Hr 43 H 04/22/25 07:26: WBC 5.8, RBC 4.38 L, Hgb 13.3, Hct 39.8 L, MCV 90.9, MCH 30.4, MCHC 33.4, RDW Std Deviation 44.4 H, RDW Coeff of Gisela 13.2, Plt Count 172, MPV 9.2, Immature Gran % (Auto) 0.300, Neut % (Auto) 60.9, Lymph % (Auto) 21.4, Rawlins % (Auto) 10.8 H, Eos % (Auto) 5.6 H, Baso % (Auto) 1.0, Absolute Neuts (auto) 3.5, Absolute Lymphs (auto) 1.23, Nucleated RBC % 0, Sodium 138, Potassium 4.3, Chloride 104, Carbon Dioxide 24.0, Anion Gap 10, BUN 16, Creatinine 1.09, Estim Creat Clear Calc 53.02, Est GFR (MDRD) Non-Af 67, BUN/Creatinine Ratio 14.5, Glucose 156 H, Calcium 8.9, TSH 3.900 Microbiology: Microbiology 04/21/25 09:05 Mucosa - Nose SARS-CoV-2, Influenza & RSV (PCR) - Final Radiography Diagnostic Testing: Radiology Impression Echocardiogram 04/21/25 11:33 Interpretation Summary Normal LV size. The left ventricular ejection fraction is 50 %. Stage 1 diastolic dysfunction. Mild segmental systolic dysfunction (see wall motion). Normal RV size. Contrast injection was performed. Ordering Physician: Bunny Sahu Referring Physician: CARMELITA PCP Performed By: Abby Howell, NUVIA, RVT D/C Instructions Weight Bearing Status: Weight bearing as tolerated Call your doctor if you observe: Fever of 101 or Higher, Coldness, Increased Pain, Numbness or Tingling, Change in Color, Inability to urinate, Inability to have a bowel movement, Shortness of breath, Dizziness, Fainting spells, Swelling in the ankles, Chest pain, Prolonged hiccupping, Increased palpitations (irregular heartbeat) and Calf discomfort DC O2, CPAP, BIPAP Needs Home O2 Discharge instructions: No When: IN 2 WEEKS Meaningful Use Info Meaningful Use Meaningful Use Diagnoses (Choose all that apply): VTE VTE Anticoag overlap given w/in hospital stay or rx'd at dc?: Yes Pt receive overlap for 5 days?: No Reason overlap not ordered, prescribed, or given for 5 days: Treatment Not Indicated Discharge Plan Admission Admit Date/Time: 04/21/25 11:31 Attending Provider: Bunny Sahu Primary Care Provider: Care Physician,No Primary Consulting Providers: Uvaldo Cao Instructions Additional Instructions / Restrictions: Needs to continue Eliquis preferably indefinitely Discharge Orders/Prescriptions Prescriptions: New Eliquis DVT-PE Treat 30D Start 5 mg (74 tabs) tablets,dose pack 5 mg PO BID Qty: 74 0RF Rx Instructions: 10 mg (2 tabs) twice daily for 7 days TILL 01/28/25 PM dose and then twice daily to continue Eliquis 5 mg tablet 5 mg PO BID 30 Days Qty: 60 4RF Rx Instructions: Start from May 23, 2024 Referrals / Follow Up: Jose Cruz Sanchez DO [Med Staff - Active Staff, Pulmonary Medicine] - Within 1 Month Referral Note: For bilateral diffuse PE involving main pulmonary trunk Uvaldo Cao MD [Med Staff - Active Staff, Vascular Surgery] Referral Note: Please call to schedule a follow up appt in 2-4 weeks. Virgil Godinez MD [Med Staff - Active Staff, Urology] - Within 1 Month Jossie Shin MD [Med Staff - Active Staff, Oncology] - 05/12/25 2:30 pm Care Physician,No Primary [Primary Care Provider, Medical] Disposition Disposition (needs filled in before D/C Order can be placed): Home, Self Care
--- NOTE | 2025-04-22 12:10 | CASEMGMT ---
Addendum entered by Jayy Joshi 04/22/25 12:25: [facility] returns call and states that the Eliquis starter pack is free for the pt and that they will deliver the rx top the bedside. [facility] states they are unable to see how much the Elquis Rx that starts on 05/23/25 will be due to the new year and change in insurance. Pt updated to follow. Pt denies further questions or concerns. No further needs identified at this time. Pt's RN aware. Original Note: Pt has an order for DC placed. Per the supervisor inspection and testing, pt does not qualify for home oxygen. Noted that the pt has a new Rx for Eliquis. TC to [facility] who states that they are running the rx now and will call this RN CM back with a galan. Pt's RN aware. CM to follow.
== END 2025-04-22 13:00 | disposition home or self-care (01) | DRG 175 ==
LOC: ED 11:39 → ICU 11:45
PROVIDERS: Admitting Provider Internal Medicine; Emergency Provider Surgery; Visit Provider Internal Medicine
DX: I26.02 Saddle embolus of pulmonary artery with acute cor pulmonale (principal); I24.89 Other forms of acute ischemic heart disease; Z66 Do not resuscitate; I77.810 Thoracic aortic ectasia; I25.10 Atherosclerotic heart disease of native coronary artery without angina pectoris; R97.20 Elevated prostate specific antigen [PSA]; Z95.1 Presence of aortocoronary bypass graft; Z95.5 Presence of coronary angioplasty implant and graft; Z79.02 Long term (current) use of antithrombotics/antiplatelets
CPT/HCPCS: 36415; 71046; 71275; 80048; 83735; 83880; 84443; 84484; 85025; 85379; 85610; 85730; 87631; 93005; 93306; 93970; 94668; 99285; Q9957; Q9967; A4216; C8929